=== PATIENT | male | born 1945 ===

== ENCOUNTER 2021-04-19 12:15 | Inpatient (IN) | payer OTHER ==
[~2021-04-19] VITALS: Ht 170.2 cm; Wt 78.5 kg
[2021-04-19] MEDS ORDERED: GLIPIZ PO (14:25)
[2021-04-19] MEDS ORDERED: METFORMIN PO (14:26)
[2021-04-19] MEDS ORDERED: GLIMEPIRIDE4 M1 PO (14:26)
[2021-04-19] MEDS ORDERED: CLONAZEPAM2 MG PO (14:27)
[2021-04-19] MEDS ORDERED: GABAPENT PO (14:27)
[2021-04-19] MEDS ORDERED: COZAAR25 MG PO (14:28)
[2021-04-19] MEDS ORDERED: [UNRECOGNIZED DRUG - OTHER] PO (14:29)
[2021-04-19] MEDS ORDERED: ACID REDUCER20 M1 PO (14:30)
[2021-04-19] MEDS ORDERED: MEDI-MECLIZINE25 MG PO (14:30)
[2021-04-19] MEDS ORDERED: ADULT LOW DOSE81 M1 PO (14:31)
[2021-04-19] MEDS ORDERED: FLONASE IH (14:32)
[2021-04-19] MEDS ORDERED: ALBUTERO IH (14:32)
[2021-04-26] MEDS ORDERED: MEDROLPACK PO (09:50)
[2021-04-26] MEDS ORDERED: PERCOCET 5-3251 EACH PO (09:50)
[2021-04-26] MEDS ORDERED: COLACE100 MG PO (09:50)
== END 2021-04-27 17:09 | DRG 473 ==
LOC: O/R 04-26 05:05 → SURG 04-26 05:05 → SURH 04-26 12:15 → SURG 04-27 17:09
PROVIDERS: ADMIT Orthopaedic Surgery Orthopaedic Surgery of the Spine; ATTEND Orthopaedic Surgery Orthopaedic Surgery of the Spine
PROC: 07DS0ZZ Extraction of Vertebral Bone Marrow, Open Approach (ICD-10-PCS; 2021-04-26)
PROC: 0RG20J0 Fusion of 2 or more Cervical Vertebral Joints with Synthetic Substitute, Anterior Approach, Anterior Column, Open Approach (ICD-10-PCS; principal; 2021-04-26 14:30)
DX: M50.023 Cervical disc disorder at C6-C7 level with myelopathy (principal)

== ENCOUNTER 2022-06-07 10:57 | Inpatient (IN) | payer OTHER ==
[~2022-06-07 10:57] MED LIST: ACID REDUCER20 M1 PO; ADULT LOW DOSE81 M1 PO; ALBUTERO IH; CLONAZEPAM2 MG PO; COLACE100 MG PO; COZAAR25 MG PO; FLONASE IH; GABAPENT PO; GLIMEPIRIDE4 M1 PO; GLIPIZ PO; MEDI-MECLIZINE25 MG PO; MEDROLPACK PO; METFORMIN PO; PERCOCET 5-3251 EACH PO; [UNRECOGNIZED DRUG - OTHER] PO
[2022-06-13] MEDS ORDERED: AMOX-CLAV 875-1 EACH PO (11:05)
[2022-06-13] MEDS ORDERED: NEURONTIN800 MG PO (11:05)
[2022-06-13] MEDS ORDERED: PERCOCET 5-3251 EACH PO (11:05)
[2022-06-13] MEDS ORDERED: MEDROLPACK PO (11:05)
[2022-06-13] MEDS ORDERED: COLACE100 MG PO (11:05)
== END 2022-06-15 11:19 | disposition home or self-care (01) | DRG 455 ==
LOC: SURH 06-13 07:28 → O/R 06-13 07:28 → SURH 06-13 12:45
PROVIDERS: ADMIT Orthopaedic Surgery Orthopaedic Surgery of the Spine; ATTEND Orthopaedic Surgery Orthopaedic Surgery of the Spine
PROC: 0SG1071 Fusion of 2 or more Lumbar Vertebral Joints with Autologous Tissue Substitute, Posterior Approach, Posterior Column, Open Approach (ICD-10-PCS; 2022-06-13)
PROC: 0QB30ZZ Excision of Left Pelvic Bone, Open Approach (ICD-10-PCS; 2022-06-13)
PROC: 07DR0ZZ Extraction of Iliac Bone Marrow, Open Approach (ICD-10-PCS; 2022-06-13)
PROC: XRGC0R7 Fusion of 2 or more Lumbar Vertebral Joints using Custom-Made Anatomically Designed Interbody Fusion Device, Open Approach, New Technology Group 7 (ICD-10-PCS; principal; 2022-06-13 18:45)
DX: M48.062 Spinal stenosis, lumbar region with neurogenic claudication (principal); M41.56 Other secondary scoliosis, lumbar region; I10 Essential (primary) hypertension; E11.9 Type 2 diabetes mellitus without complications; M13.80 Other specified arthritis, unspecified site; Z79.84 Long term (current) use of oral hypoglycemic drugs